=== PATIENT | female | born 1975 | race Caucasian/White ===

== ENCOUNTER → 2016-08-06 | Outpatient (CLI) | payer BC | END | disposition home or self-care (01) | LOC: C.PAPS 10:15 | PROVIDERS: ATTEND Obstetrics & Gynecology | DX: O09.511 Supervision of elderly primigravida, first trimester (principal) ==

== ENCOUNTER → 2016-08-06 | Outpatient (CLI) | payer BC ==
[2016-08-06 16:40] LABS: BASO % 0.5 %; BASO ABS # 0.06 K/uL (0-0.2); COMPLETE YES; HEMATOCRIT 44.5 % (37-47); IG% 0.3 %; LYMPH % 28.1 %; LYMPH ABS # 3.25 K/uL (1.2-3.4); MEAN CELL VOLUME 81.4 fL (80-100); MEAN CORPUSCULAR HEMOGLOBIN 26.9 pg (25-34); MEAN PLATELET VOLUME 10.8 fL (7.4-10.4); MONO % 8.6 %; NEUT % 59.5 %; PLATELET COUNT 291 K/uL (130-400); RED BLOOD COUNT 5.47 M/uL (4.2-5.4); WHITE BLOOD COUNT 11.58 K/uL (4.8-10.8)
== END | disposition home or self-care (01) ==
LOC: MERGE 15:21 → C.LAB1850 15:21
PROVIDERS: ATTEND Obstetrics & Gynecology
DX: O09.519 Supervision of elderly primigravida, unspecified trimester (principal)

== ENCOUNTER → 2016-08-06 | Outpatient (CLI) | payer BC ==
[2016-08-06 18:10] LABS: URINE APPEARANCE CLOUDY (CLEAR); URINE BILIRUBIN NEG (NEG); URINE COLOR DK YELLOW; URINE EPITHELIAL CELL AUTO 0-5 /lpf (0-5); URINE NITRITE NEG (NEG); URINE PH 8.5 (4.5-7.5); URINE SPECIFIC GRAVITY 1.025 (1.000-1.030); UROBILINOGEN NEG (NEG)
[2016-08-06 18:25] LABS: MANUAL MICROSCOPIC REQUIRED? NO; REVIEW REQ? YES
[2016-08-09 00:57] LABS: CHLAMYDIA TRACH RNA*** NOT DETECTED (NOT DETECTED); GC (NEIS GONORRHOEAE)RNA** NOT DETECTED (NOT DETECTED)
== END | disposition home or self-care (01) ==
LOC: MERGE 17:26 → C.LABSPEC 17:26
PROVIDERS: ATTEND Obstetrics & Gynecology
DX: O09.519 Supervision of elderly primigravida, unspecified trimester (principal)

== ENCOUNTER 2017-04-09 23:31 | Emergency (ER) | payer BC, OTHER ==
[~2017-04-09] VITALS: Ht 167.6 cm; Wt 109.5 kg
[2017-04-10 00:01] VITALS: TEMP 36.7; Ht 167.6 cm; Wt 109.5 kg
[2017-04-10] MEDS ORDERED: AZITHROMYCIN 250 MG TAB PO STA (00:34)
--- NOTE | 2017-04-10 00:36 | EMERGENCY ROOM VISIT NOTE ---
History Report prepared by Sandra: Galileo Bernstein Under the Supervision of: Dr. Redd Chan M.D. First contact with patient: 00:23 Chief Complaint: RESPIRATORY PROBLEMS Stated Complaint: ASTHMA Nursing Triage Summary: Patient ambulatory to triage with a steady and upright gait, states "I can't get my asthma under control. I need a breathing treatment and some Prednisone. I have been struggling for two days now. I have inhalers at home but they're not helping." Patient reports a productive cough with white or yellow sputum. History of Present Illness The patient is a 41 year old female who presents to the Emergency Room with complaints of constant SOB beginning a few days ago. The patient states that her asthma has been acting up due to the weather, and that she has not been able to get it under control. She notes that she has had flare ups similar to her current symptoms that typically occur during this type of weather. She also complains of back pain that she attributes to her asthma. She reports that her back pain feels like a muscular ache due to her breathing. She denies any runny nose, flu like symptoms, CP, LOC, abdominal pain, leg swelling, and calf pain. The patient states that she uses Advair and albuterol typically, and that she has used her albuterol more recently than she typically does. She notes that she also has a history of pneumonia but has no history of PEs and blood clots. Source of History: patient Onset: a few days ago Position: chest Quality: other (SOB) Timing: constant Associated Symptoms: + back pain (feels like a muscular ache), No LOC, No chest pain, No abdominal pain Note: She denies any runny nose, flu like symptoms, leg swelling, and calf pain. Review of Systems See HPI for pertinent positives & negatives. A total of 10 systems reviewed and were otherwise negative. Past Medical & Surgical Medical Problems: (1) Asthma (2) Pneumonia Family History No pertinent family history stated. Social History Smoking Status: Current Every Day Smoker Marital Status: Housing Status: lives with family Occupation Status: employed Current/Historical Medications Scheduled Azithromycin (Zithromax Z-Ronak), 1 PKT PO UD Fluticasone Prop/Salmeterol (Advair Diskus 500/50 60 Dose), 1 PUFF INH BID Prednisone (Prednisone), 0 PO DAILY Scheduled PRN Albuterol Hfa (Ventolin Hfa), 2 PUFFS INH Q6H PRN for SOB/Wheezing Allergies Uncoded Allergies: SUNFLOWER SEEDS (Allergy, Severe, " DIFFICULTY BREATHING", 04/10/17) EGGS (UNDERCOOKED OR RAW) (Allergy, Intermediate, "ITCHY THROAT,VOMITING", 04/10/17) FLU SHOT (Allergy, Intermediate, "ITCHY THROAT, VOMITING", 04/10/17) RAW FRUITS & VEGETABLES (Allergy, Intermediate, " ITCHY THROAT", 04/10/17) Physical Exam Vital Signs Date Time Temp Pulse Resp B/P (MAP) Pulse Ox O2 Delivery O2 Flow Rate FiO2 04/10/17 02:00 95 20 133/81 94 Room Air 04/10/17 01:11 77 24 142/81 98 Nebulizer 8.0 04/10/17 00:51 88 18 91 Room Air 04/10/17 00:25 94 Room Air 04/10/17 00:01 36.7 93 22 123/80 92 Room Air 04/09/17 23:59 92 Room Air Physical Exam GENERAL: Patient is well appearing and in minimal distress. HEENT: No acute trauma, normocephalic atraumatic, mucous membranes moist, no nasal congestion, no scleral icterus. NECK: No stridor, no adenopathy, no meningismus, trachea is midline. LUNGS: Minimally dyspneic, not tachypneic. Diffuse wheezing in all lung malcolm, inspiratory but mostly expiratory. No rhonchi. HEART: Regular rate and rhythm. No murmurs, rubs, gallops appreciated. ABDOMEN: Soft, nontender, bowel sounds positive, no masses appreciated, no peritonitis. BACK: No midline tenderness, no CVA tenderness EXTREMITIES: Normal motion all extremities, no cyanosis, no edema. NEUROLOGIC: Alert and oriented, no acute motor or sensory deficits, no focal weakness, cranial nerves grossly intact. SKIN: No rash, no jaundice, no diaphoresis. Medical Decision & Procedures Medications Administered Medications (Trade) Dose Ordered Sig/Salbador Route Start Time Stop Time Status Last Admin Dose Admin Prednisone (PredniSONE TAB) 60 mg NOW STAT PO 04/10/17 00:34 04/10/17 00:35 DC 04/10/17 00:46 60 MG Azithromycin (Zithromax Tab) 500 mg NOW STAT PO 04/10/17 00:34 04/10/17 00:35 DC 04/10/17 00:45 500 MG Albuterol/ Ipratropium (Duoneb) 12 ml ONE ONCE INH 04/10/17 00:45 04/10/17 00:46 DC 04/10/17 00:51 12 ML ED Course 0024: The patient was evaluated in room A9. A complete history and physical exam was performed. 0135: I reevaluated and updated the patient. Her breathing has improved. Upon second exam, there is diffuse loud wheezing in all lung malcolm and improved aeration from previous. 0209: I reevaluated and updated the patient. She is feeling better. Her O2 saturation is 92% on room air, and she is feeling well enough to go home. Her breathing is much improved, but she still has some expiratory wheezes. We discussed the pros and cons of being admitted versus being discharged home, but she still wants to go home. She is going home with her . I advised against work tomorrow and talked to her about the importance of rest. 0217: Reevaluated the patient. Discussed results and discharge instructions: she verbalized understanding and agreement. The patient is ready for discharge. Medical Decision Differential: Infectious, Reactive Airway Disease, Pneumonia, Pneumothorax, ACS , Pulmonary Embolism, amongst other etiologies entertained. 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 No chest pain, syncope nor other evidence cardiac symptoms. She has no risk factors of PE, no findings of DVT, is not significnatly tachycardic nor hypoxic and has cause of greater probability than PE thus CTPE study not indicated. No fever and she denies symptoms other than standard shob. Given Hour long neb with vast improvement symptoms and patient breathing comfortably. Still persistent experatory wheeze but breathing much better and open on exam. Mild low O2 sats likely secondary to v/q mismatch and patient is not shob. Discussed pros/cons staying/home and patient much prefers to go home. Aware of symptoms requiring RTED/911. Made clear that there is a chance she will worsen. Advised rest and avoid irritants. Add in Zpack given history along with Prednisone taper. Has inhaler at home. Medication Reconcilliation Current Medication List: was personally reviewed by me Blood Pressure Screening Patient's blood pressure: Elevated blood pressure Blood pressure disposition: Elevated BP felt to be situational Impression Primary Impression: Acute asthma exacerbation Scribe Attestation The scribe's documentation has been prepared under my direction and personally reviewed by me in its entirety. I confirm that the note above accurately reflects all work, treatment, procedures, and medical decision making performed by me. Departure Information Dispostion Home / Self-Care Prescriptions Prednisone (Prednisone) 20 Mg Tab 0 PO DAILY, #14 TAB 3 TABS DAILY FOR 2 DAYS, THEN 2 TABS DAILY FOR 2 DAYS, THEN 1 TAB DAILY FOR 2 DAYS, THEN 1/2 TAB DAILY FOR 2 DAYS. Prov: Redd Chan M.D. 04/10/17 Azithromycin (ZITHROMAX Z-RONAK) 250 Mg Tab 1 PKT PO UD, #1 PKT Prov: Redd Chan M.D. 04/10/17 Referrals No Doctor, Assigned (PCP) Forms HOME CARE DOCUMENTATION FORM, IMPORTANT VISIT INFORMATION, WORK / SCHOOL INSTRUCTIONS Patient Instructions Asthma - [facility], [facility]
[2017-04-10] MEDS ORDERED: ALBUT/IPRATROP 3MG/0.5MG NEB 3 ML VIAL INH ONE (00:45)
[2017-04-10 00:51] VITALS: PULSE 88; O2SAT 91
[2017-04-10] MEDS ORDERED: ADVIN50/60 INH (00:56)
[2017-04-10] MEDS ORDERED: VNTHFA/IN INH (00:57)
[2017-04-10 02:00] VITALS: BP 133/81; PULSE 95; O2SAT 94
[2017-04-10] MEDS ORDERED: AZITTAB PO (02:10)
[2017-04-10] MEDS ORDERED: PRED20TA PO (02:10)
== END 2017-04-10 02:17 | disposition home or self-care (01) ==
LOC: C.EDB 23:31 → C.EDA 04-10 02:17
DX: J45.901 Unspecified asthma with (acute) exacerbation (principal); F17.200 Nicotine dependence, unspecified, uncomplicated

== ENCOUNTER 2021-06-23 23:37 | Observation (INO) ==
--- NOTE | 2021-06-24 00:02 | Emergency Department Note ---
Impression & Plan Perirectal abscess The case was discussed with general surgery and they will evaluate the patient for further care ED Provider Note NAME: LC HARMAN AGE: 45 SEX: F ARRIVES VIA: Walk-In INFORMANT: Patient ED PROVIDER(S): Siri Aldana DO CHIEF COMPLAINT: Rectal pain PLAN: Disposition: The patient will be evaluated by general surgery Condition: Stable MEDICAL DECISION MAKING: This is a 45-year-old female patient who presents to the emergency department with rectal pain for the past 3 days. Patient was medicated with IV Dilaudid which gave her moderate relief of her symptoms. Patient went for CT scan to confirm perirectal abscess. This was of moderate size. The case was discussed with general surgery and they will evaluate for further management. Triage Nursing notes reviewed and agree with them. Vital Signs: reviewed and remarkable for mild hypertension Differential diagnosis: Thrombosed hemorrhoid, perirectal abscess, pilonidal cyst ER treatment provided: IV Dilaudid x2 IV Zofran Diagnostics interpreted by me: Laboratory studies: See below Imaging studies: As per stat rad CT ABDOMEN & PELVIS With Contrast: Comparison 05/17/20. 3.5 x 3.8 x 2.7 cm left perirectal abscess with mild adjacent stranding. No bowel obstruction. Unremarkable appendix. Colonic diverticulosis. Mild thickening of the sigmoid colon which may be artifact of incomplete distention or muscular hypertrophy though mild diverticulitis cannot be completely excluded in the appropriate clinical setting. No evidence for perforation or diverticular abscess. Solid organs are unremarkable. No calcified gallstones. No significant biliary dilatation. No ascites or free air. Mild fat-containing inguinal hernias. No acute osseous abnormality. HPI: 45/F arrives for evaluation of rectal pain. Patient began to develop some rectal pain approximately 3 days ago. The pain has dramatically worsened now she has noticed a lump on the left side of her rectum. She is unable to sit on her bottom and has difficulty moving her bowels because of the pain. She has been taking Ex-Lax for the past couple of days to avoid constipation. ROS: See above HPI for pertinent positives & negatives. A total of 6 systems reviewed and were otherwise negative. PAST MEDICAL HISTORY:Asthma, seasonal allergies, constipation PAST SURGICAL HISTORY:See Below FAMILY HISTORY:See Below SOCIAL HISTORY:See Below HOME MEDICATIONS:See list ALLERGIES:See list VITALS:See Below PHYSICAL EXAMINATION: HEENT: Head - normocephalic and atraumatic Pupils are equal, round, and reactive to light. Extraocular eye muscles are intact, and sclera are anicteric. Nose - moist nasal mucosa without discharge. Mouth - moist buccal mucosa. Oropharynx is nonerythematous and there is no tonsillar exudate or edema noted. Neck: Supple; no cervical lymphadenopathy or thyromegaly Heart: Regular rate and rhythm. There is a normal S1 and S2 with no murmurs, clicks, or gallops appreciated. Lungs: Clear to auscultation bilaterally with no wheezes, rales, or rhonchi. Abdomen: Soft, completely nontender, nondistended, with good bowel sounds. There are no palpable pulsatile masses or hepatosplenomegaly. There is no guarding, rigidity, or rebound noted. Extremities: No evidence of cyanosis, clubbing, or edema. There are easily palpable peripheral pulses. Skin: warm and dry with good turgor and no rashes. Rectal: Mild erythema was noted to the left side of the rectum with induration and significant pain to palpation ED COURSE: Times/Reassessments: 2345: Patient was evaluated in room B2. A complete history and physical was performed. An IV lock was initiated and labs were drawn as above. Patient was given IV Dilaudid and Zofran She will go for CT scan of the abdomen/pelvis to further evaluate this perirectal abscess. 0125: Patient was reevaluated at this time and she is feeling much more comfortable. Upon repeat evaluation, the patient had recurrence of her discomfort and was given another milligram of IV Dilaudid. I reviewed the results of the CT scan and discussed with general surgery and they will evaluate for further care. Siri Aldana DO Past Med/Surg History Medical History Encounter for screening for malignant neoplasm of colon Encounter for screening for malignant neoplasm of rectum GERD (gastroesophageal reflux disease) History of depression History of genital warts Kidney stones Missed Pneumonia 2011 Reactive airway disease Varicella Surgical History H/O right breast biopsy 03/2019 benign, BCC H/O wisdom tooth extraction History of cryosurgery History of esophagogastroduodenoscopy (EGD) (01/2018) History of gynecologic surgery surgically induced S/P LASIK (laser assisted in situ keratomileusis) of both eyes Family History Mother Crohn's disease Thyroid disease Father Hypertension Grandfather (Maternal) Myocardial infarction Denies family history of Colon cancer Ovarian cancer Prostate cancer Breast cancer Colorectal cancer Social History Smoking Status: Never smoker Age Quit Using Tobacco: 43; packs per day: 1; Years Smoked: 20; Second Hand Exposure: Yes; Hx Alcohol Use: Yes Hx Substance Use: No Preferred Language: Marshallese Communication Ability: Effective Visual Impairment: No Limitations Hearing Ability: Normal Shoveler Required: No Beliefs That Will Affect Care: None marital status: Current Living Situation: Spouse current occupational status: employed 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 Feels Safe at Home: Yes Childhood Exposure to Second-Hand Smoke: No Diet Comment: no specific diet Dental Care, Regularly: Yes Physical Activity Frequency: 1-2 Times per Week Seatbelt Use: always Sunscreen Use: Yes Do you think of yourself as: straight/heterosexual Assistive Devices: None Allergies Allergies Allergy/AdvReac Type Severity Reaction Status Date / Time mold Allergy Intermediate CAN Verified 06/24/21 01:30 TRIGGER ASTHMA ATTACK cat dander Allergy Mild ITCHY EYES Verified 06/24/21 01:30 dog dander Allergy Mild ITCHY EYES Verified 06/24/21 01:30 No Known Drug Allergies Allergy Unknown Verified 06/24/21 01:30 SUNFLOWER SEEDS Allergy Severe " Uncoded 06/24/21 01:30 DIFFICULTY BREATHING" DUST Allergy Intermediate CAN Uncoded 06/24/21 01:30 TRIGGER ASTHMA ATTACK EGGS (UNDERCOOKED OR RAW) Allergy Intermediate "ITCHY Uncoded 06/24/21 01:30 THROAT,VOMITING" ENVIRONMENTAL Allergy Intermediate CAN Uncoded 06/24/21 01:30 TRIGGER ASTHMA ATTACK RAW FRUITS & VEGETABLES Allergy Intermediate " ITCHY Uncoded 06/24/21 01:30 THROAT" Pollen Allergy Unknown Uncoded 06/24/21 01:30 Home Meds Home Medications Medication Instructions Recorded Confirmed albuterol sulfate 90 mcg/actuation 2 puff INHALATION Q6H PRN 01/14/18 06/24/21 aerosol inhaler (Ventolin HFA) epinephrine 0.3 mg/0.3 mL 0.3 mg IM DIRECTED #1 ea 12/28/18 06/24/21 injection, auto-injector budesonide-formoterol HFA 80 2 puff INHALATION BID 06/24/21 06/24/21 mcg-4.5 mcg/actuation aerosol inhaler (Symbicort) ibuprofen 200 mg tablet 800 mg PO BID PRN 06/24/21 06/24/21 pantoprazole 40 mg tablet,delayed 40 mg PO BID 06/24/21 06/24/21 release phenolphthalein 90 mg tablet 0 mg PO DIRECTED PRN 06/24/21 06/24/21 Previous Rx's Medication Instructions Recorded ipratropium bromide 0.02 % 2.5 ml INH QID PRN #75 ml 06/14/19 solution for inhalation phentermine 15 mg capsule 15 mg PO DAILY #30 cap 04/24/21 dupilumab 300 mg/2 mL subcutaneous See Rx Instructions .ROUTE 05/09/21 syringe (Dupixent) .COMPLEX #4 ml norethindrone 1 mg-ethinyl 1 tab PO DAILY #84 tab 06/19/21 estradiol 20 mcg (21)-iron 75 mg (7) tablet (Microgestin FE 04/18 ()) Results & Data (ED) Vital Signs Vital Signs - 24 hr 06/23/21 23:40 06/23/21 23:50 06/23/21 23:58 Temperature 36.8 C 36.9 C Temperature Source Temporal Artery Scan Oral Pulse Rate 92 H 73 Pulse Rate [Right] 91 H Pulse Rhythm Regular Pulse Rhythm [Right] Regular Pulse Strength [Right] Normal Respiratory Rate 18 18 18 Respiratory Effort / Characteristics Non-Labored Spontaneous Non-Labored Spontaneous Respiratory Depth Normal Normal Respiratory Pattern Regular Blood Pressure 125/84 Blood Pressure [Right Arm] 141/80 H Blood Pressure Mean 97 Blood Pressure Mean [Right Arm] 100 Blood Pressure Position [Right Arm] Lying Pulse Oximetry 96 95 96 Oxygen Delivery Method Room Air Room Air Room Air Sepsis New/Unexplained Change in Mental Status N/A Sepsis Action Taken by Nursing No Action Required 06/24/21 01:00 06/24/21 03:00 Temperature 37 C 36.9 C Temperature Source Oral Oral Pulse Rate Pulse Rate [Right] 75 74 Pulse Rhythm Pulse Rhythm [Right] Regular Regular Pulse Strength [Right] Normal Normal Respiratory Rate 18 18 Respiratory Effort / Characteristics Non-Labored Spontaneous Non-Labored Spontaneous Respiratory Depth Normal Normal Respiratory Pattern Blood Pressure Blood Pressure [Right Arm] 141/87 H 141/74 H Blood Pressure Mean Blood Pressure Mean [Right Arm] 105 96 Blood Pressure Position [Right Arm] Lying Lying Pulse Oximetry 94 96 Oxygen Delivery Method Room Air Room Air Sepsis New/Unexplained Change in Mental Status Sepsis Action Taken by Nursing Laboratory Data Result diagrams: 06/24/21 00:11 06/24/21 00:11 Lab Results 06/24/21 06/24/21 06/24/21 Range/Units 00:11 00:11 00:28 WBC 13.58 H (4.8-10.8) K/uL RBC 4.83 (4.2-5.4) M/uL Hgb 12.9 (12.0-16.0) g/dL Hct 39.6 (37-47) % MCV 82.0 (80-100) fL MCH 26.7 (25-34) pg MCHC 32.6 (32-36) g/dL RDW Std Deviation 42.7 (36.4-46.3) fL RDW Coeff of Jb 14.2 (11.5-14.5) % Plt Count 264 (130-400) K/uL MPV 10.3 (7.4-10.4) fL Immature Gran % (Auto) 0.2 % Neut % (Auto) 67.0 % Lymph % (Auto) 20.6 % Pierce % (Auto) 9.1 % Eos % (Auto) 2.9 % Baso % (Auto) 0.2 % Neut # (Auto) 9.08 H (1.4-6.5) K/uL Lymph # (Auto) 2.80 (1.2-3.4) K/uL Pierce # (Auto) 1.24 H (0.11-0.59) K/uL Eos # (Auto) 0.40 (0-0.5) K/uL Baso # (Auto) 0.03 (0-0.2) K/uL Immature Gran # (Auto) 0.03 H (0.00-0.02) K/uL Sodium 136 (136-145) mmol/L Potassium 4.4 (3.5-5.1) mmol/L Chloride 104 (98-107) mmol/L Carbon Dioxide 24 (21-32) mmol/L Anion Gap 8 (3-11) BUN 15 (6-23) mg/dl Creatinine 0.65 (0.6-1.2) mg/dl Est Cr Clr Drug Dosing 134.0 ml/min Est GFR ( Amer) 122.5 ml/min Est GFR (Non-Af Amer) 105.7 ml/min BUN/Creatinine Ratio 23.1 H (10-20) Glucose 101 H (70-99(Fasting)) mg/dl Calcium 9.0 (8.5-10.1) mg/dl Total Bilirubin 0.3 (0.2-1.0) mg/dl AST 13 (13-39) U/L ALT 14 (7-52) U/L Alkaline Phosphatase 60 (34-104) U/L Total Protein 6.6 (6.0-8.3) gm/dl Albumin 3.7 (3.4-5.0) gm/dl Globulin 2.9 (2.5-4.0) gm/dl Albumin/Globulin Ratio 1.3 (0.9-2) Urine Color Yellow Urine Appearance Clear (Clear) Urine pH 7.5 (4.5-7.5) Ur Specific [place] 1.024 (1.000-1.030) Urine Protein Negative (Negative) Urine Glucose (UA) Negative (Negative) Urine Ketones Negative (Negative) Urine Blood Negative (Negative) Urine Nitrite Negative (Negative) Urine Bilirubin Negative (Negative) Urine Urobilinogen Negative (Negative) Ur Leukocyte Esterase Negative (Negative) Administered Medications Discontinued Medications Hydromorphone HCl (Hydromorphone Inj 1 Mg/Ml Syringe) 1 mg IV NOW STA Stop: 06/24/21 00:08 Last Admin: 06/24/21 00:23 Dose: 1 mg Documented by: [id number] Hydromorphone HCl (Hydromorphone Inj 1 Mg/Ml Syringe) 1 mg IV NOW STA Stop: 06/24/21 02:58 Last Admin: 06/24/21 03:04 Dose: 1 mg Documented by: [id number] Ioversol (Optiray 320 100ml) 100 ml IV ONCE ONE Stop: 06/24/21 01:15 Last Admin: 06/24/21 01:15 Dose: 93 ml Documented by: [id number] Ondansetron HCl (Ondansetron Inj 2 Mg/Ml 2 Ml Vial) 4 mg IV NOW STA Stop: 06/24/21 00:08 Last Admin: 06/24/21 00:24 Dose: 4 mg Documented by: [id number] Discharge Plan Visit Data Chief Complaint: Rectal Pain Stated Complaint: SEVERE PAIN IN RECTAL AREA - LARGE LUMP UNDER SKIN ED Provider: Siri Aldana Discharge Problem: Perirectal abscess Forms Stand Alone Forms: [facility] [employer] Prescriptions Prescriptions: No Action ipratropium bromide 0.02 % solution 2.5 ml INH QID PRN (Reason: shortness of breath or wheezing) Qty: 75 RF: 6 Dupixent Syringe 300 mg/2 mL syringe See Rx Instructions .ROUTE .COMPLEX Qty: 4 RF: 10 phentermine 15 mg capsule 15 mg PO DAILY Qty: 30 RF: 1 norethindrone-e.estradiol-iron [Microgestin FE 04/18 (28)] 1 mg-20 mcg (21)/75 mg (7) tablet 1 tab PO DAILY Qty: 84 RF: 3 epinephrine 0.3 mg/0.3 mL auto-injector 0.3 mg IM DIRECTED Qty: 1 RF: 0 albuterol sulfate [Ventolin HFA] 90 mcg/actuation Hfa Aerosol Inhaler 2 puff INHALATION Q6H PRN (Reason: Shortness Of Breath Or Wheezing) RF: 0 pantoprazole 40 mg tablet,delayed release (DR/EC) 40 mg PO BID RF: 0 budesonide-formoterol [Symbicort] 80-4.5 mcg/actuation HFA aerosol inhaler 2 puff inhalation BID RF: 0 Ex-Lax 90 mg Tablet 0 mg PO DIRECTED PRN (Reason: ..) RF: 0 ibuprofen 200 mg Tablet 800 mg PO BID PRN (Reason: Pain) RF: 0 Referrals Referrals: Chetan Luo III, CRNP [Primary Care Provider] -
[2021-06-24] MEDS ORDERED: HYDROmorphone INJ 1 MG/ML SYRINGE IV STA ×2 (00:07→02:57)
[2021-06-24] MEDS ORDERED: ONDANSETRON INJ 2 MG/ML 2 ML VIAL IV STA ×2 (00:07→12:15)
[2021-06-24 00:20] LABS: Basophils # (auto) 0.03 K/uL (0-0.2); Basophils % (auto) 0.2 %; Eosinophils % (auto) 2.9 %; Hematocrit (blood only) 39.6 % (37-47); Hemoglobin 12.9 g/dL (12.0-16.0); Immature Granulocytes # (auto) 0.03 K/uL (0.00-0.02); Immature Granulocytes % (auto) 0.2 %; Lymphocytes % (auto) 20.6 %; Mean Corpuscular Hemoglobin 26.7 pg (25-34); Mean Corpuscular Hgb Conc 32.6 g/dL (32-36); Mean Platelet Volume 10.3 fL (7.4-10.4); Monocytes # (auto) 1.24 K/uL (0.11-0.59); Monocytes % (auto) 9.1 %; Neutrophils # (auto) 9.08 K/uL (1.4-6.5); Platelet Count 264 K/uL (130-400); RDW Coefficient of Variation 14.2 % (11.5-14.5); RDW Standard Deviation 42.7 fL (36.4-46.3); Red Blood Count 4.83 M/uL (4.2-5.4); White Blood Count 13.58 K/uL (4.8-10.8)
[2021-06-24 00:39] LABS: Albumin Globulin Ratio 1.3 (0.9-2); Albumin Level 3.7 gm/dl (3.4-5.0); BUN Creatinine Ratio 23.1 (10-20); Bilirubin,Total 0.3 mg/dl (0.2-1.0); Est GFR (African American) 122.5 ml/min; Est GFR (Non-African American) 105.7 ml/min; Globulin 2.9 gm/dl (2.5-4.0); Potassium 4.4 mmol/L (3.5-5.1); Total Protein 6.6 gm/dl (6.0-8.3)
[2021-06-24 00:41] LABS: Appearance Urine Clear (Clear); Bilirubin Urine Negative (Negative); Blood Urine Negative (Negative); Color Urine Yellow; Glucose Urine UA Negative (Negative); Ketones Urine Negative (Negative); Leukocyte Esterase Urine Negative (Negative); Nitrite Urine Negative (Negative); Protein Urine Negative (Negative); Specific Gravity Urine 1.024 (1.000-1.030); Urobilinogen Urine Negative (Negative); pH Urine 7.5 (4.5-7.5)
[2021-06-24] MEDS ORDERED: OPTIRAY 320 100ml IV ONE (01:14)
--- NOTE | 2021-06-24 03:42 | History & Physical Report ---
Date of Service June 24, 2021 Assessment & Plan (1) Perirectal abscess: Plan: Due to the patient's imaging and clinical presentation we will proceed as follows: Will be admitted to the hospital Antibiotics will be administered. We will place her on Zosyn We will hydrate with IV fluids Analgesics will be provided Antiemetics will be provided We will implement n.p.o. status We will tentatively plan on incision and drainage of this perirectal abscess in the operating room by Dr. Brown. We will add her to his OR schedule for 06/24/2021. I have discussed the risks, benefits, and expected clinical course with the patient and she wishes to proceed Additional recommendations will be made based on operative findings and her postoperative course SCDs were used for DVT prevention no chemical means due to planned surgery Should be a level 1 full code History of Present Illness Chief Complaint: Rectal pain Primary Care Provider: Chetan Luo III, JO-ANN This is a 45-year-old female who presented to [facility] [address] emergency department secondary to rectal pain for approximately 4 days. Patient notes that the pain is primary located on the left side of her anus. Patient initially thought that this was due to hemorrhoids but she did not note any bloody bowel movements and the pain did not subside this prompted a visit to the emergency department. She denies any fevers. She denies any shakes or chills. She denies any nausea vomiting. Patient says that she has never had an issue like this before and she also notes that she is not diabetic. She does note that from time to time she will experience bouts of constipation but is never had any anal fissures. She does report a history of diverticulitis and she did not require hospitalization for this. Her most recent oral intake was at approximate 7:00 PM on 06/23/2021. In the emergency department the patient had labs and imaging which I independently reviewed. CT scan of the abdomen and pelvis showed a 3.5 x 3.8 x 2 point centimeter left perirectal abscess with adjacent fat stranding. Labs include a CBC her white blood cell count was 13.5. Hemoglobin, hematocrit, and platelet count were all normal. Chemistry profile showed sodium, potassium, BUN, and creatinine were all normal. Urinalysis was not indicative of infection. A Covid test was performed and was noted to be pending. At the time of my interview she was resting comfortably in bed in no distress. Allergies Allergy/AdvReac Type Severity Reaction Status Date / Time sunflower seed Allergy Severe Difficulty Verified 06/24/21 05:48 Breathing egg Allergy Intermediate itchy Verified 06/24/21 05:48 throat, vomiting mold Allergy Intermediate CAN Verified 06/24/21 01:30 TRIGGER ASTHMA ATTACK cat dander Allergy Mild ITCHY EYES Verified 06/24/21 01:30 dog dander Allergy Mild ITCHY EYES Verified 06/24/21 01:30 No Known Drug Allergies Allergy Unknown Verified 06/24/21 01:30 DUST Allergy Intermediate CAN Uncoded 06/24/21 01:30 TRIGGER ASTHMA ATTACK ENVIRONMENTAL Allergy Intermediate CAN Uncoded 06/24/21 01:30 TRIGGER ASTHMA ATTACK RAW FRUITS & VEGETABLES Allergy Intermediate " ITCHY Uncoded 06/24/21 01:30 THROAT" Pollen Allergy Unknown Uncoded 06/24/21 01:30 Home Medications Medication Instructions Recorded Confirmed Type albuterol sulfate 90 mcg/actuation 2 puff INHALATION Q6H PRN 01/14/18 06/24/21 History aerosol inhaler (Ventolin HFA) epinephrine 0.3 mg/0.3 mL 0.3 mg IM DIRECTED #1 ea 12/28/18 06/24/21 History injection, auto-injector ipratropium bromide 0.02 % 2.5 ml INH QID PRN #75 ml 06/14/19 06/24/21 Rx solution for inhalation phentermine 15 mg capsule 15 mg PO DAILY #30 cap 04/24/21 06/24/21 Rx dupilumab 300 mg/2 mL subcutaneous See Rx Instructions .ROUTE 05/09/21 06/24/21 Rx syringe (Dupixent) .COMPLEX #4 ml norethindrone 1 mg-ethinyl 1 tab PO DAILY #84 tab 06/19/21 06/24/21 Rx estradiol 20 mcg ()-iron 75 mg (7) tablet (Microgestin FE 04/18 ()) budesonide-formoterol HFA 80 2 puff INHALATION BID 06/24/21 06/24/21 History mcg-4.5 mcg/actuation aerosol inhaler (Symbicort) ibuprofen 200 mg tablet 800 mg PO BID PRN 06/24/21 06/24/21 History pantoprazole 40 mg tablet,delayed 40 mg PO BID 06/24/21 06/24/21 History release phenolphthalein 90 mg tablet 0 mg PO DIRECTED PRN 06/24/21 06/24/21 History Past Med/Surg History Medical History Encounter for screening for malignant neoplasm of colon Encounter for screening for malignant neoplasm of rectum GERD (gastroesophageal reflux disease) History of depression History of genital warts Kidney stones Missed Pneumonia 2011 Reactive airway disease Varicella Surgical History H/O right breast biopsy 03/2019 benign, BCC H/O wisdom tooth extraction History of cryosurgery History of esophagogastroduodenoscopy (EGD) (01/2018) History of gynecologic surgery surgically induced S/P LASIK (laser assisted in situ keratomileusis) of both eyes Family History Mother Crohn's disease Thyroid disease Father Hypertension Grandfather (Maternal) Myocardial infarction Denies family history of Colon cancer Ovarian cancer Prostate cancer Breast cancer Colorectal cancer Social History Smoking Status: Never smoker Age Quit Using Tobacco: 43; packs per day: 1; Years Smoked: 20; Second Hand Exposure: Yes; Hx Alcohol Use: Yes Hx Substance Use: No Preferred Language: Uzbek Communication Ability: Effective Visual Impairment: No Limitations Hearing Ability: Normal Ore Bridge Operator Required: No Beliefs That Will Affect Care: None marital status: Current Living Situation: Spouse current occupational status: employed 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 Other Information That Helps Us Care for You: No Feels Safe at Home: Yes Safety Concerns: Feels Safe At This Time Childhood Exposure to Second-Hand Smoke: No Diet Comment: no specific diet Dental Care, Regularly: Yes Physical Activity Frequency: 1-2 Times per Week Seatbelt Use: always Sunscreen Use: Yes Do you think of yourself as: straight/heterosexual Assistive Devices: None Review of Systems Constitutional: no fever and no chills Eyes: no diplopia Ear, Nose, Mouth, Throat: no ear pain Respiratory: no cough and no dyspnea Cardiovascular: no chest pain Gastrointestinal: as per Subjective / HPI Genitourinary: no dysuria Musculoskeletal: no back pain Integumentary: no rash Neurologic: no generalized weakness Physical Exam Constitutional: well developed and well nourished; no acute distress Eyes: no conjunctival abnormality ENMT: Ears: no hearing impairment Neck: trachea midline Respiratory: normal respiratory effort; no respiratory distress and no labored breathing Cardiovascular: Rate/Rhythm: regular rate and regular rhythm Gastrointestinal (Abdomen): Soft and nontender. Patient's rectum was examined in the presence of a nurse managed security sales consultant and on the left side of her anus at approximately the 9 o'clock position the patient had an area of fluctuance and induration. There were no open areas or excoriations. There is no drainage. The area was slightly warm and it was tender to palpation. There is no crepitus noted. Musculoskeletal: No calf tenderness Skin: no rashes Neurologic: moves all extremities Psychiatric: A+Ox3, euthymic affect Results & Data Results & Data ([facility]) Vital Signs (Past 12 Hours) Vital Signs Temp Pulse Pulse Resp BP BP Pulse Ox 06/24/21 03:00 36.9 C 74 18 141/74 H 96 06/24/21 01:00 37 C 75 18 141/87 H 94 06/23/21 23:58 73 18 96 06/23/21 23:50 36.9 C 91 H 18 141/80 H 95 06/23/21 23:40 36.8 C 92 H 18 125/84 96 Supervising Physician Co-Signing Physician Notes I personally saw and evaluated the patient with Volodymyr Crenshaw PA-C and agree with the assessment and plan. 45-year-old female with a perirectal abscess Admit to surgery CT images and results personally viewed by me Keep n.p.o. give IV antibiotics To OR today for incision and drainage of perirectal abscess Consent obtained, risks discussed including bleeding, infection, nonhealing wound, fistula formation PG Care Time/CCT Total # of Minutes Spent Total Time Spent with Patient: Total time spent is greater than 50% in coordination of care (as documented) at patient's floor/unit and/or counseling patient: Coding Level of Care Code INT OBSERVATION CARE 70M LVL 3 Diagnoses Perirectal abscess K61.1
[2021-06-24] MEDS ORDERED: ONDANSETRON INJ 2 MG/ML 2 ML VIAL IV PRN (05:44)
[2021-06-24] MEDS ORDERED: ALBUTEROL HFA 8 GM INHALER INH PRN (05:44)
[2021-06-24] MEDS ORDERED: IPRATROPIUM BROMIDE NEB SOLN 0.02% 2.5 ML VIAL INH PRN (05:44)
[2021-06-24] MEDS ORDERED: [UNRECOGNIZED DRUG - OTHER] PO PRN (05:44)
[2021-06-24] MEDS ORDERED: EPINEPHrine INJ 1 MG/ML AMP IM PRN (05:44)
[2021-06-24] MEDS ORDERED: PIPERACILL/TAZOBAC CONSULT ACTIVE PRN ×2 (05:44)
[2021-06-24] MEDS ORDERED: PIPERACILLIN/TAZOBACTAM 4.5 GM/120 ML BAG IV ONE (06:00)
[2021-06-24] MEDS: MoRPHine SULFATE 4 MG/ML 1 ML CARP\\VIAL IV PRN ×2 (06:12→09:14)
[2021-06-24] MEDS: LACTATED RINGER'S 1,000 ML IV SCH ×2 (06:13→16:18)
[2021-06-24] MEDS: PANTOprazole 40 MG TAB PO SCH ×2 (07:34→16:18)
--- NOTE | 2021-06-24 08:16 | CT Scan Report ---
CT abd pelvis IV con only CLINICAL HISTORY: eval for perirectal abscess TECHNIQUE: Helical axial images of the abdomen and pelvis were obtained and displayed. Automated dose lowering techniques and/or adjustment according to patient size were utilized for this exam. This e xam was performed with intravenous contrast. COMPARISON: Comparison is made to CT head and pelvis 05/17/2020 FINDINGS: Lower chest: No acute abnormality Liver: Unremarkable. No focal lesions are seen. Gallbladder and biliary tree: No calcified gallstones. Normal caliber wall. No intra- or extrahepatic biliary ductal dilation. Pancreas: Unremarkable, no focal lesions. Spleen: Unremarkable. Adrenals: Unremarkable. Kidneys and ureters: Unremarkable. Bladder: Unremarkable. Reproductive organs: Unremarkable. Bowel: Diverticulosis is seen with minimal residual wall thickening which may be secondary to underdi stention. The appendix is normal. There is a 37 x 34 mm perirectal abscess with a tiny focus of air. Lymph nodes Retroperitoneal: Unremarkable. Mesenteric: Unremarkable. Pelvic: Subcentimeter lymph nodes are noted. Peritoneum: Normal. Vessels: Unremarkable. Abdominal wall: Bilateral fat-containing inguinal hernias are seen. Bones: Grade 1 retrolisthesis at L4-L5. IMPRESSION: 37 x 34 mm perirectal abscess is seen. Previous seen noted diverticulitis has improved, minimal resid ual wall thickening may be secondary to underdistention or residual inflammation. ACT 112: Negative or not required by law. Electronically signed by: Yevgeniy Varela M.D. 06/24/2021 8:13 AM
[2021-06-24] MEDS ORDERED: BUDESONIDE/FORMOTEROL FUMARATE 80/4.5 60 PUFFS/INHALER INH SCH (09:00)
[2021-06-24] MEDS: FLUTICASONE/VILANTEROL 100/25MCG 14 PUFFS/INHALER INH SCH (09:50)
[2021-06-24] MEDS: PIPERACILLIN/TAZOBACTAM 4.5 GM in DEXTROSE 5% 100 ML IV SCH ×2 (11:43→19:53)
[2021-06-24] MEDS ORDERED: KETAMINE 50 MG/5 ML SYRINGE ONE (11:57)
[2021-06-24] MEDS ORDERED: fentaNYL citrate 100 MCG/2 ML VIAL ONE (11:57)
[2021-06-24] MEDS ORDERED: GLYCOPYRROLATE 0.2 MG/ML VIAL ONE (11:57)
[2021-06-24] MEDS ORDERED: ONDANSETRON INJ 2 MG/ML 2 ML VIAL ONE (11:57)
[2021-06-24] MEDS ORDERED: MIDAZOLAM HCL 1 MG/ML 2ML VIAL ONE (11:57)
[2021-06-24] MEDS ORDERED: PROPOFOL IV EMULSION 10 MG/ML 20 ML VIAL IV ONE ×4 (11:57→13:30)
--- NOTE | 2021-06-24 12:10 | Anesthesiology Consultation ---
Date of Service June 24, 2021 Assessment & Plan (1) Encounter for pre-operative examination: Chart Review Chart Review: Acceptable Risk for Surgery and Patient NOT seen in Pre Admission Testing Consults Requested none ASA ASA3 Proposed Anesthesia Anesthesia Type: General Risk / Benefits Reviewed With: PT / POA / Parent / Guardian, Accepts Plan and I nformed Consent Obtained History Surgery Operation Date: 06/24/21 10:40 Proposed Procedures p Incision and Drainage of Perirectal Abscess - Jose Brown, Height/Weight Height: 5 ft 6 in Weight: 109.6 kg Allergies Allergy/AdvReac Type Severity Reaction Status Date / Time sunflower seed Allergy Severe Difficulty Verified 06/24/21 05:48 Breathing egg Allergy Intermediate itchy Verified 06/24/21 05:48 throat, vomiting mold Allergy Intermediate CAN Verified 06/24/21 01:30 TRIGGER ASTHMA ATTACK cat dander Allergy Mild ITCHY EYES Verified 06/24/21 01:30 dog dander Allergy Mild ITCHY EYES Verified 06/24/21 01:30 No Known Drug Allergies Allergy Unknown Verified 06/24/21 01:30 DUST Allergy Intermediate CAN Uncoded 06/24/21 01:30 TRIGGER ASTHMA ATTACK ENVIRONMENTAL Allergy Intermediate CAN Uncoded 06/24/21 01:30 TRIGGER ASTHMA ATTACK RAW FRUITS & VEGETABLES Allergy Intermediate " ITCHY Uncoded 06/24/21 01:30 THROAT" Pollen Allergy Unknown Uncoded 06/24/21 01:30 Medications Home Medications Medication Instructions Recorded Confirmed Last Taken albuterol sulfate 90 mcg/actuation 2 puff INHALATION Q6H PRN 01/14/18 06/24/21 02/22/18 08:00 aerosol inhaler (Ventolin HFA) epinephrine 0.3 mg/0.3 mL 0.3 mg IM DIRECTED #1 ea 12/28/18 06/24/21 Unknown injection, auto-injector ipratropium bromide 0.02 % 2.5 ml INH QID PRN #75 ml 06/14/19 06/24/21 Unknown solution for inhalation phentermine 15 mg capsule 15 mg PO DAILY #30 cap 04/24/21 06/24/21 Unknown dupilumab 300 mg/2 mL subcutaneous See Rx Instructions .ROUTE 05/09/21 06/24/21 06/18/21 syringe (StepOut) .COMPLEX #4 ml norethindrone 1 mg-ethinyl 1 tab PO DAILY #84 tab 06/19/21 06/24/21 Unknown estradiol 20 mcg (21)-iron 75 mg (7) tablet (Microgestin FE 04/18 ()) budesonide-formoterol HFA 80 2 puff INHALATION BID 06/24/21 06/24/21 Unknown mcg-4.5 mcg/actuation aerosol inhaler (Symbicort) ibuprofen 200 mg tablet 800 mg PO BID PRN 06/24/21 06/24/21 Unknown pantoprazole 40 mg tablet,delayed 40 mg PO BID 06/24/21 06/24/21 Unknown release phenolphthalein 90 mg tablet 0 mg PO DIRECTED PRN 06/24/21 06/24/21 Unknown Active Medications Generic Name Dose Route Start Last Admin Trade Name Freq PRN Reason Stop Dose Admin Fluticasone/Vilanterol 1 puffs 06/24/21 09:00 06/24/21 09:50 Fluticasone/Vilanterol 100/25mcg 14 Puffs/Inhaler INH 07/24/21 08:59 Not Given DAILY GORDO Lactated Ringer's 1,000 mls @ 100 mls/hr 06/24/21 05:44 06/24/21 06:13 Lr IV 07/24/21 05:43 100 mls/hr .Q10H GORDO Administration Piperacillin Sod/Tazobactam 120 mls @ 30 mls/hr 06/24/21 12:00 06/24/21 11:43 Sod 4.5 gm/ Dextrose IV 07/04/21 11:59 30 mls/hr Q8H GORDO Administration Protocol Miscellaneous 1 ea 06/24/21 08:00 06/24/21 09:50 Order Awaiting Action: (Dupilumab [Dupixent Syringe] 300 Mg/2 Ml Syringe N/A 07/24/21 07:59 Not Given QS GORDO Miscellaneous 1 ea 06/24/21 08:00 06/24/21 09:50 Order Awaiting Action: Norethindrone-E.Estradiol-Iron [Microgestin Fe 04/18 ( )] 1 Mg-2 N/A 07/24/21 07:59 Not Given QS GORDO Miscellaneous 1 ea 06/24/21 08:00 06/24/21 09:50 Order Awaiting Action: Phentermine 15 Mg Capsule N/A 07/24/21 07:59 Not Given QS GORDO Morphine Sulfate 3 mg 06/24/21 05:44 06/24/21 09:14 Morphine Sulfate 4 Mg/Ml 1 Ml Carp\\Vial IV 07/08/21 05:43 3 mg Q3H PRN Administration Pain Pantoprazole Sodium 40 mg 06/24/21 07:30 06/24/21 07:34 Pantoprazole 40 Mg Tab PO 07/24/21 07:29 40 mg DAILY@0730,1630 GORDO Administration NPO Date Last Intake of Fluids: 06/23/21 Time Last Intake of Fluids: 23:55 Date Last Intake of Solids: 06/23/21 Time Last Intake of Solids: 23:55 Past Medical History Medical History Encounter for screening for malignant neoplasm of colon Encounter for screening for malignant neoplasm of rectum GERD (gastroesophageal reflux disease) History of depression History of genital warts Kidney stones Missed Pneumonia 2012 Reactive airway disease Varicella Exercise / Class Metabolic Activity II 4-5 Yardwork/Stairs/Walk up hill Negative for chest pain or shortness of breath. Patient denies active symptoms of GERD. Past Family History Family History Mother Crohn's disease Thyroid disease Father Hypertension Grandfather (Maternal) Myocardial infarction Denies family history of Colon cancer Ovarian cancer Prostate cancer Breast cancer Colorectal cancer Past Surgical History Surgical History H/O right breast biopsy 03/2019 benign, BCC H/O wisdom tooth extraction History of cryosurgery History of esophagogastroduodenoscopy (EGD) (01/2018) History of gynecologic surgery surgically induced S/P LASIK (laser assisted in situ keratomileusis) of both eyes Past Anesthesia History No Hx of Anesthesia Complications History of PONV No Hx of PONV and No Hx of Motion Sickness Social History Smoking Status: Never smoker Hx Alcohol Use: Yes Alcohol Intake Frequency Comment: once a week Hx Substance Use: No substance use type: does not use Review of Systems Patient denies active symptoms of GERD. Positive for rectal pain Reports feeling hot Physical Exam Vital Signs Last Vital Signs Temp 37.2 C 06/24/21 10:51 Pulse 85 06/24/21 10:51 Resp 20 06/24/21 10:51 BP 144/88 H 06/24/21 10:51 Pulse Ox 93 06/24/21 10:51 Constitutional + obese ENMT Mouth: no TMJ abnormality and oral opening not small Thyromental Distance: > or= 3.5 Finger Breadths Mallampati Class: I Mouth / Teeth: 1. veneers Neck normal visual inspection; neck extension not limited Respiratory normal respiratory effort Auscultation: lungs clear to auscultation bilaterally Cardiovascular Rate/Rhythm: regular rate and regular rhythm Heart Sounds: no murmur Neurologic moves all extremities Psychiatric Orientation: alert and oriented x 3 Testing Laboratory Results 06/24/21 00:11 06/24/21 00:11 Urine Color Yellow 06/24/21 00:28 Urine Appearance Clear (Clear) 06/24/21 00:28 Urine pH 7.5 (4.5-7.5) 06/24/21 00:28 Ur Specific [place] 1.024 (1.000-1.030) 06/24/21 00:28 Urine Protein Negative (Negative) 06/24/21 00:28 Urine Glucose (UA) Negative (Negative) 06/24/21 00:28 Urine Ketones Negative (Negative) 06/24/21 00:28 Urine Nitrite Negative (Negative) 06/24/21 00:28 Ur Leukocyte Esterase Negative (Negative) 06/24/21 00:28 06/24/21 11:12 POC Ur Test NEG
[2021-06-24] MEDS ORDERED: ALBUT/IPRATROP 3MG/0.5MG NEB 3 ML VIAL NEB STA (12:16)
[2021-06-24] MEDS ORDERED: ATROPINE SULFATE 0.1 MG/ML 10ML SYR IV PRN (12:18)
[2021-06-24] MEDS ORDERED: ePHEDrine sulfate 50 MG/ML AMP IV PRN (12:18)
[2021-06-24] MEDS ORDERED: PROMETHAZINE HCL 12.5 MG in SODIUM CHLORIDE 0.9% 50 ML IV PRN (12:18)
[2021-06-24] MEDS ORDERED: fentaNYL citrate 100 MCG/2 ML VIAL IV PRN (12:18)
[2021-06-24] MEDS ORDERED: HYDROmorphone INJ 1 MG/ML SYRINGE IV PRN (12:18)
[2021-06-24] MEDS ORDERED: ALBUT/IPRATROP 3MG/0.5MG NEB 3 ML VIAL ONE (12:22)
[2021-06-24] MEDS ORDERED: BUPIVACAINE 0.5 % 5 MG/1 ML MPF 30ML VIAL ONE (12:52)
[2021-06-24] MEDS ORDERED: SUCCINYLCHOLINE CHLORIDE 20 MG/ML 10 ML VIAL IV ONE (13:22)
[2021-06-24] MEDS ORDERED: ROCURONIUM BROMIDE 10 MG/ML 5 ML VIAL IV ONE (13:22)
--- NOTE | 2021-06-24 13:42 | Post Operative Brief Note ---
PG Immediate Post Op with CF Date of Surgery June 24, 2021 Pre & Post Diagnosis Operation Date: 06/24/21 10:40 Pre-Op Diagnosis: perirectal abscess Post-Op Diagnosis: perirectal abscess I identified the patient and participated in the time-out.: Yes Procedure Operation Date: 06/24/21 10:40 Actual Procedures p Incision and Drainage of Perirectal Abscess(Not Applicable) - Jose Brown DO Surgeon Jose Brown DO Fraud Examiner Ney Villegas PA-C Estimated Blood Loss 10 Findings Consistent with Post-Op Diagnosis Specimens Specimen Description: 1. perirectal abscess Anesthesia Type General Complications none Disposition Disposition: Recovery Room
--- NOTE | 2021-06-24 13:44 | Operative Report ---
PG Post Operative Report Pre & Post Diagnosis Operation Date: 06/24/21 10:40 Pre-Op Diagnosis: perirectal abscess Post-Op Diagnosis: perirectal abscess I identified the patient and participated in the time-out.: Yes Procedure Operation Date: 06/24/21 10:40 Actual Procedures p Incision and Drainage of Perirectal Abscess(Not Applicable) - Jose Brown DO Surgeon Jose Brown DO Steam Distribution Supervisor Ney Villegas PA-C Estimated Blood Loss 10 Findings Consistent with Post-Op Diagnosis Specimens Abscess fluid for culture Drains None Anesthesia Type General Complications none Disposition Disposition: Recovery Room Indications 45-year-old female with a perirectal abscess Description of Procedure The patient was brought to the OR and placed in the lithotomy position. At this time she underwent General endotrachealanesthesia without issue. She was given appropriate pre-operative antibiotics. The perineum was prepped and draped in the usual sterile fashion. A timeout was called. The procedure was verified as Incision and drainage of michael-rectal abscess. Surgical, anesthesia and nursing teams agreed and the procedure was begun. Digital rectal exam was performed and no mass or fistula was found. After injection of 0.25% Marcaine with epinephrine, an incision was made directly over the most fluctuant area of abscess using a #11 blade scalpel. Purulent fluid was encountered. Wide drainage was ensured. All loculations were broken up bluntly. At this time the incision was irrigated until clear. Hemostasis was achieved using electrocautery. Hemostasis was complete. The incision was packed with a wet to dry Kerlix. Sterile dressing was applied. The patient was awakened from anesthesia and taking to PACU having remained stable throughout the entire case. All needle and sponge counts correct x 2. The physician optometrist assistant was present and scrubbed for the entire procedure. He was essential in positioning prepping and draping the patient, retraction and exposure and placement of the dressings. I attest to the content of the Intraoperative Record and any orders documented therein. Any exceptions are noted below.
[2021-06-24] MEDS ORDERED: MoRPHine SULFATE 2 MG/ML CARP IV PRN (14:59)
--- NOTE | 2021-06-24 15:24 | Anesthesiology Progress Note ---
Date of Service June 24, 2021 Anesthesia Post Procedure Vital Signs Vital Signs: Temp Pulse Pulse Pulse Resp BP BP 06/24/21 15:19 37.0 C 70 16 114/73 06/24/21 14:40 36.8 C 67 12 118/57 L 06/24/21 14:30 71 12 111/67 06/24/21 14:20 74 16 120/70 06/24/21 14:10 71 15 111/58 L 06/24/21 14:00 69 18 119/67 06/24/21 13:51 36.3 C L 95 H 20 128/73 06/24/21 12:27 69 18 06/24/21 10:51 37.2 C 85 20 06/24/21 07:57 36.6 C 74 16 06/24/21 05:29 36.6 C 91 H 18 06/24/21 03:00 36.9 C 74 18 06/24/21 01:00 37 C 75 18 06/23/21 23:58 73 18 06/23/21 23:50 36.9 C 91 H 18 06/23/21 23:40 36.8 C 92 H 18 125/84 BP Pulse Ox 06/24/21 15:19 94 06/24/21 14:40 97 06/24/21 14:30 95 06/24/21 14:20 96 06/24/21 14:10 96 06/24/21 14:00 98 06/24/21 13:51 96 06/24/21 12:27 97 06/24/21 10:51 144/88 H 93 06/24/21 07:57 124/76 96 06/24/21 05:29 128/81 95 06/24/21 03:00 141/74 H 96 06/24/21 01:00 141/87 H 94 06/23/21 23:58 96 06/23/21 23:50 141/80 H 95 06/23/21 23:40 96 Pain Intensity Rectal: Pain Intensity: 4 Transfer of Care Handoff Completed per policy Notes Mental Status: alert / awake / arousable and participated in evaluation Patient Amnestic to Procedure: Yes Nausea / Vomiting: adequately controlled Pain: adequately controlled Airway Patency, RR, SpO2: stable & adequate BP & HR: stable & adequate Hydration State: stable & adequate Anesthetic Complications: no major complications apparent and Pt Satisfied with anesthetic care
[2021-06-24] MEDS: ACETAMINOPHEN 1,000 MG/100 ML VIAL IV PRN (19:52)
[2021-06-25] MEDS: LACTATED RINGER'S 1,000 ML IV SCH (02:49)
[2021-06-25] MEDS: ACETAMINOPHEN 1,000 MG/100 ML VIAL IV PRN (04:23)
[2021-06-25] MEDS: PIPERACILLIN/TAZOBACTAM 4.5 GM in DEXTROSE 5% 100 ML IV SCH ×3 (04:52→20:15)
[2021-06-25] MEDS: FLUTICASONE/VILANTEROL 100/25MCG 14 PUFFS/INHALER INH SCH (08:52)
[2021-06-25] MEDS: PANTOprazole 40 MG TAB PO SCH ×2 (08:52→16:44)
--- NOTE | 2021-06-25 09:25 | Surgery Progress Note ---
Date of Service June 25, 2021 Assessment & Plan (1) Perirectal abscess: Plan: POD 1 will change packing continue on IV abx today Admission and Anticipated Discharge Date Admission Date: June 24, 2021 Supervising Physician Co-Signing Physician Notes I personally saw and evaluated the patient with Ney Villegas PA-C and agree with the assessment and plan. 45-year-old female postoperative day 1 incision and drainage perirectal abscess Her pain is improved and she is afebrile We will remove packing later this afternoon and repacked lightly with iodoform gauze packing If she continues to improve we will plan on discharge home tomorrow without packing in place She will follow-up with me 1 week after discharge Subjective feels better after drainage, no fevers/chills Results & Data ([facility]) Vital Signs (Past 12 Hours) Vital Signs Temp Pulse Resp BP Pulse Ox 06/25/21 08:03 36.7 C 65 16 113/77 94 06/25/21 02:49 37.1 C 70 20 122/81 94 06/24/21 22:27 37.4 C 75 18 108/72 96 PG Care Time/CCT Total # of Minutes Spent Total Time Spent with Patient: Total time spent is greater than 50% in coordination of care (as documented) at patient's floor/unit and/or counseling patient: Coding Level of Care Code None Diagnoses Perirectal abscess K61.1
[2021-06-25] MEDS: MoRPHine SULFATE 4 MG/ML 1 ML CARP\\VIAL IV PRN ×2 (10:23→18:16)
[2021-06-26] MEDS: PIPERACILLIN/TAZOBACTAM 4.5 GM in DEXTROSE 5% 100 ML IV SCH ×2 (04:29→12:30)
[2021-06-26] MEDS: PANTOprazole 40 MG TAB PO SCH (07:29)
[2021-06-26] MEDS: FLUTICASONE/VILANTEROL 100/25MCG 14 PUFFS/INHALER INH SCH (07:30)
[2021-06-26] MEDS: ACETAMINOPHEN 1,000 MG/100 ML VIAL IV PRN (09:28)
--- NOTE | 2021-06-26 11:14 | Surgery Progress Note ---
Date of Service June 26, 2021 Assessment & Plan (1) Perirectal abscess: Plan: POD#2 I&D of perianal abscess pt doing well, VSS, afebrile packing fell out w/ BM..no need to replace. Can use gauze or a pad in underwear and change qd and prn may shower or warm tub soaks to keep area clean complete course of abx- will send augmentin to pharmacy may return to work when pt feels comfortable okay for dispo. f/u in clinic with Dr. Brown next week Admission and Anticipated Discharge Date Admission Date: June 24, 2021 Subjective Patient feeling well. Minimal pain. Packing fell out with a bowel movement. Physical Exam Physical Exam: awake/alert, nad Respiratory: normal respiratory effort Gastrointestinal (Abdomen): gauze placed at site of i&d, minimal drainage. ttp improved Results & Data ([facility]) Vital Signs (Past 12 Hours) Vital Signs Temp Pulse Resp BP Pulse Ox 06/26/21 07:06 37.0 C 61 18 125/77 95 PG Care Time/CCT Total # of Minutes Spent Total Time Spent with Patient: Total time spent is greater than 50% in coordination of care (as documented) at patient's floor/unit and/or counseling patient: Coding Level of Care Code None Diagnoses Perirectal abscess K61.1
--- NOTE | 2021-07-02 11:23 | Discharge Summary ---
Date of Service June 26, 2021 Admission HPI Per Admitting Provider This is a 45-year-old female who presented to [facility] emergency department secondary to rectal pain for approximately 4 days. Patient notes that the pain is primary located on the left side of her anus. Patient initially thought that this was due to hemorrhoids but she did not note any bloody bowel movements and the pain did not subside this prompted a visit to the emergency department. She denies any fevers. She denies any shakes or chills. She denies any nausea vomiting. Patient says that she has never had an issue like this before and she also notes that she is not diabetic. She does note that from time to time she will experience bouts of constipation but is never had any anal fissures. She does report a history of diverticulitis and she did not require hospitalization for this. Her most recent oral intake was at approximate 7:00 PM on 06/23/2021. In the emergency department the patient had labs and imaging which I independently reviewed. CT scan of the abdomen and pelvis showed a 3.5 x 3.8 x 2 point centimeter left perirectal abscess with adjacent fat stranding. Labs include a CBC her white blood cell count was 13.5. Hemoglobin, hematocrit, and platelet count were all normal. Chemistry profile showed sodium, potassium, BUN, and creatinine were all normal. Urinalysis was not indicative of infection. A Covid test was performed and was noted to be pending. At the time of my interview she was resting comfortably in bed in no distress. Principal Diagnosis Perirectal abscess Discharge Exam Constitutional WD/WN, vitals as above Gastrointestinal (Abdomen) wound packing out, decreasing drainage, resolving induration Discharge Data Allergies Allergy/AdvReac Type Severity Reaction Status Date / Time sunflower seed Allergy Severe Difficulty Verified 06/24/21 05:48 Breathing egg Allergy Intermediate itchy Verified 06/24/21 05:48 throat, vomiting mold Allergy Intermediate CAN Verified 06/24/21 01:30 TRIGGER ASTHMA ATTACK cat dander Allergy Mild ITCHY EYES Verified 06/24/21 01:30 dog dander Allergy Mild ITCHY EYES Verified 06/24/21 01:30 No Known Drug Allergies Allergy Unknown Verified 06/24/21 01:30 DUST Allergy Intermediate CAN Uncoded 06/24/21 01:30 TRIGGER ASTHMA ATTACK ENVIRONMENTAL Allergy Intermediate CAN Uncoded 06/24/21 01:30 TRIGGER ASTHMA ATTACK RAW FRUITS & VEGETABLES Allergy Intermediate " ITCHY Uncoded 06/24/21 01:30 THROAT" Pollen Allergy Unknown Uncoded 06/24/21 01:30 Consultations 06/24/21 03:25 ED Decision to Admit Stat Procedures Performed Operation Date: 06/24/21 10:40 Actual Procedures p Incision and Drainage of Perirectal Abscess(Not Applicable) - Jose Brown DO Ordered Studies 06/23/21 23:58 CT abd pelvis IV con only Urgent Hospital Course (1) Perirectal abscess: 45 y/o female presented to the ER with rectal pain. White count was 13,[address] demonstrated 4 cm perirectal abscess. She was admitted to the surgical service overnight and taken to the operating room in the morning for I&D. She was continued on IV antibiotics for 48 hours post op. Packing was changed daily. She was stable for discharge on oral antibiotics on POD 2 without any further wound packing. Total Time Total Time Spent Total Time Spent (In Minutes): 15 Discharge Plan Discharge Items Patient Disposition: Home - Self-Care Reason For Visit: RECTAL ABSCESS Discharge Diagnosis: incision and drainage of michael-rectal abscess Activity: Per Instructions section Lifting: No more than 25 pounds Bathing: No limitations Exercise/Sports: Wait until after follow-up appointment Driving/Machine Use: no driving while taking narcotics for pain Non-emergency contact: Surgeon Call non-emergency contact if: you have any medication questions, your symptoms worsen, your pain is not controlled, your pain is concerning for you, you have a fever, your temperature is above 101.5, your wound has increased redness, your wound has increased drainage and your wound pain has increased Follow-up/Referrals: Chetan Luo III, CRNP [Primary Care Provider] - Jose Brown DO [Physician] - 07/04/21 11:20 am (Please call to schedule follow up in clinic in 1 week) Diet: Regular Addtl Attending Provider Instructions: You may keep a pad or gauze/tape dressing where your wound is and change daily and as needed until healed. Pending Studies at Discharge: Yes Studies:: microbiology Stand-Alone Forms: My [employer], Opioid Pain Management, Smoking Cessation Medications and DC Order Prescriptions: New amoxicillin-pot clavulanate 875-125 mg tablet 1 tab PO BID Qty: 14 RF: 0 oxycodone 5 mg tablet 5 - 10 mg PO .[id number] PRN (Reason: pain, for initial therapy, max 6 tabs per day) Qty: 15 RF: 0 Continued ipratropium bromide 0.02 % solution 2.5 ml INH QID PRN (Reason: shortness of breath or wheezing) Qty: 75 RF: 6 Dupixent Syringe 300 mg/2 mL syringe See Rx Instructions .ROUTE .COMPLEX Qty: 4 RF: 10 phentermine 15 mg capsule 15 mg PO DAILY Qty: 30 RF: 1 norethindrone-e.estradiol-iron [Microgestin FE 04/18 (28)] 1 mg-20 mcg (21)/75 mg (7) tablet 1 tab PO DAILY Qty: 84 RF: 3 epinephrine 0.3 mg/0.3 mL auto-injector 0.3 mg IM DIRECTED Qty: 1 RF: 0 albuterol sulfate [Ventolin HFA] 90 mcg/actuation Hfa Aerosol Inhaler 2 puff INHALATION Q6H PRN (Reason: Shortness Of Breath Or Wheezing) RF: 0 pantoprazole 40 mg tablet,delayed release (DR/EC) 40 mg PO BID RF: 0 budesonide-formoterol [Symbicort] 80-4.5 mcg/actuation HFA aerosol inhaler 2 puff inhalation BID RF: 0 phenolphthalein 90 mg Tablet 0 mg PO DIRECTED PRN (Reason: ..) RF: 0 ibuprofen 200 mg Tablet 800 mg PO BID PRN (Reason: Pain) RF: 0 Discharge Orders: Discharge Order (Routine); Ordered 06/26/21 Ordered By: Adilene Benson/Other Patient Handouts: Understanding Perianal Abscess Admission Data Admit Date/Time: 06/24/21 04:08 Attending Provider: Jose Brown Admit Provider: Jose Brown Primary Care Provider: Chetan Luo III Other Providers: Jose Brown Other Interventions: Discharge Summary Assessment (RN) Last Done: 06/26/21 11:29 Coding Level of Care Code D/C DAY MANAGEMENT <30 MINS Diagnoses Perirectal abscess K61.1
== END 2021-06-26 13:15 | disposition home or self-care (01) ==
LOC: 3N 23:37 → ED 23:37 → 3N 06-24 04:53